=== PATIENT | female | born 1950 | race Caucasian/White ===

== ENCOUNTER 2017-04-15 17:05 | Inpatient (IN) ==
[2017-04-15] MEDS ORDERED: LEVOFLOXACIN INJ 750 MG in PREMIX 1 EACH IV STA (17:43)
[2017-04-15] MEDS ORDERED: methylPREDNISolone SOD SUC 125 MG/2 ML VIAL IV STA (17:43)
[2017-04-15] MEDS ORDERED: ALBUTEROL 2.5 MG/3 ML NEB RESP TX SCH (18:00)
[2017-04-15 18:14] LABS: Basophils # 0.1 10*3/uL (0.0-0.2); Basophils % 1.2 % (0.0-0.8); Eosinophils # 0.2 10*3/uL (0.0-0.87); Eosinophils % 1.9 % (0.00-10.9); Hematocrit 44.7 VOL% (35.7-47.0); Hemoglobin 15.5 GM/DL (12.0-16.0); Immature Granulocytes % 0.2 %; Immature Granulocytes Absolute 0.02 #; Lymphocytes # 2.3 10*3/uL (1.4-4.0); Lymphocytes % 26.9 % (21.3-54.2); Mean Corpuscular HGB Conc 34.7 GM/DL (32-36); Mean Corpuscular Hemoglobin 32 PG (27-34); Mean Corpuscular Volume 91.6 FL (87-102); Mean Platelet Volume 9.8 FL (9.6-12.0); Monocytes # 0.7 10*3/uL (0.11-0.8); Monocytes % 8.7 % (1.7-12.7); Neutrophils # 5.1 10*3/uL (1.4-7.4); Neutrophils % 61.1 % (38.7-73.9); Platelet Count 328 T/CUMM (130-400); Red Blood Count 4.88 MC/CUMM (3.8-5.5); Red Cell Distribution Width 12.4 % (9.3-17.3); White Blood Count 8.4 T/CUMM (4-12)
[2017-04-15] MEDS ORDERED: methylPREDNISolone SOD SUC 125 MG/2 ML VIAL ONE (18:16)
[2017-04-15] MEDS ORDERED: LEVOFLOXACIN INJ 150 ML IV ONE (18:16)
[2017-04-15 18:24] LABS: INR 0.9; Partial Thromboplastin Time 27.3 SECS (0-40)
[2017-04-15 18:51] LABS: Alanine Aminotransferase 27 U/L (13-56); Albumin 3.3 G/DL (3.4-5.0); Alkaline Phosphatase 74 U/L (45-117); Aspartate Amino Transferase 19 U/L (0-37); Blood Urea Nitrogen 11 MG/DL (7-18); Calcium 9.6 MG/DL (8.5-10.1); Glucose 99 MG/DL (74-106); Sodium 136 MMOL/L (136-145); Total Protein 7.3 G/DL (6.4-8.3); Troponin I Only 0.027 NG/ML (0.00-0.045)
[2017-04-15] MEDS ORDERED: INFLUENZA VIRUS VACCINE 0.5 ML SYRINGE IM ONE (21:07)
[2017-04-15] MEDS: HEPARIN 5,000 UNIT/1 ML VIAL SUBCUT SCH (22:04)
[2017-04-15] MEDS: clonazePAM 0.5 MG TABLET PO PRN (22:04)
[2017-04-15] MEDS: LACTULOSE 20 GM/30 ML UDCUP PO SCH (22:04)
[2017-04-15] MEDS: ESCITALOPRAM 10 MG TABLET PO SCH (22:06)
[2017-04-16] MEDS: ALBUTEROL 1.25 MG/3 ML NEB RESP TX SCH ×4 (02:40→19:14)
[2017-04-16] MEDS: ACETYLCYSTEINE 20% 800 MG/4 ML VIAL RESP TX SCH ×4 (02:41→19:14)
[2017-04-16] MEDS: HEPARIN 5,000 UNIT/1 ML VIAL SUBCUT SCH ×3 (06:43→21:30)
[2017-04-16 06:45] LABS: Basophils # 0.1 10*3/uL (0.0-0.2); Basophils % 0.7 % (0.0-0.8); Hematocrit 43.1 VOL% (35.7-47.0); Hemoglobin 14.7 GM/DL (12.0-16.0); Immature Granulocytes % 0.3 %; Immature Granulocytes Absolute 0.02 #; Lymphocytes # 1.1 10*3/uL (1.4-4.0); Lymphocytes % 15.5 % (21.3-54.2); Mean Corpuscular HGB Conc 34.1 GM/DL (32-36); Mean Corpuscular Hemoglobin 31 PG (27-34); Mean Corpuscular Volume 91.5 FL (87-102); Mean Platelet Volume 10.7 FL (9.6-12.0); Monocytes # 0.6 10*3/uL (0.11-0.8); Monocytes % 8.7 % (1.7-12.7); Neutrophils # 5.2 10*3/uL (1.4-7.4); Neutrophils % 74.8 % (38.7-73.9); Platelet Count 301 T/CUMM (130-400); Red Blood Count 4.71 MC/CUMM (3.8-5.5); Red Cell Distribution Width 12.3 % (9.3-17.3); White Blood Count 6.9 T/CUMM (4-12)
[2017-04-16 07:11] LABS: Calcium 9.9 MG/DL (8.5-10.1); Osmolality,Calculated 273.8 MOS/KG (273-304); Potassium 4.3 MMOL/L (3.5-5.1)
[2017-04-16] MEDS: LACTULOSE 20 GM/30 ML UDCUP PO SCH ×2 (10:34→21:29)
[2017-04-16] MEDS: clonazePAM 0.5 MG TABLET PO PRN ×2 (10:35→20:09)
[2017-04-16 15:12] LABS: Free T4 (Free Thyroxine) 1.44 NG/DL (0.76-1.46); Thyroid Stimulating Hormone 0.615 uIU/ml (0.358-3.74)
[2017-04-16] MEDS: LEVOFLOXACIN INJ 250 MG in PREMIX 1 EACH IV SCH (16:00)
[2017-04-16] MEDS: BISACODYL 10 MG SUPP RECTAL PRN (19:15)
[2017-04-16] MEDS ORDERED: MONTELUKAST 10 MG TABLET PO SCH (21:00)
[2017-04-16] MEDS: ESCITALOPRAM 10 MG TABLET PO SCH (21:29)
[2017-04-16] MEDS: methylPREDNISolone SOD SUC 40 MG/1 ML VIAL IV SCH (21:29)
[2017-04-17] MEDS: ALBUTEROL 1.25 MG/3 ML NEB RESP TX SCH ×4 (00:33→19:30)
[2017-04-17] MEDS: ACETYLCYSTEINE 20% 800 MG/4 ML VIAL RESP TX SCH ×4 (00:34→19:30)
[2017-04-17] MEDS: HEPARIN 5,000 UNIT/1 ML VIAL SUBCUT SCH ×3 (06:10→21:46)
[2017-04-17 08:46] LABS: ABG Base Excess 5.9 MMOL/L (-2.5-2.5); ABG HCO3 31.7 MMOL/L (20-26); ABG Oxygen Saturation 93.9 % (95-100); ABG PO2 60.3 MM HG (80-95); ABG TCO2 33.2 MMOL/L (23-27)
[2017-04-17] MEDS: LACTULOSE 20 GM/30 ML UDCUP PO SCH ×2 (08:49→21:37)
[2017-04-17] MEDS: LEVOFLOXACIN INJ 250 MG in PREMIX 1 EACH IV SCH (08:50)
[2017-04-17] MEDS: methylPREDNISolone SOD SUC 40 MG/1 ML VIAL IV SCH ×2 (08:50→21:48)
[2017-04-17] MEDS: clonazePAM 0.5 MG TABLET PO PRN ×3 (08:58→21:56)
[2017-04-17] MEDS ORDERED: ALBUTEROL 2.5 MG/3 ML NEB RESP TX PRN (11:30)
[2017-04-17] MEDS ORDERED: LACTULOSE 20 GM/30 ML UDCUP PO PRN (11:30)
[2017-04-17] MEDS ORDERED: NAPROXEN 250 MG TABLET PO PRN (11:30)
[2017-04-17] MEDS: BISACODYL 10 MG SUPP RECTAL PRN (13:45)
[2017-04-17] MEDS: OMEGA 3 ACID ETHYL ESTERS 1 GM CAPSULE PO SCH (21:39)
[2017-04-17] MEDS: ESCITALOPRAM 10 MG TABLET PO SCH (21:39)
[2017-04-18] MEDS: ALBUTEROL 1.25 MG/3 ML NEB RESP TX SCH ×4 (00:56→20:05)
[2017-04-18] MEDS: ACETYLCYSTEINE 20% 800 MG/4 ML VIAL RESP TX SCH ×4 (00:56→20:05)
[2017-04-18] MEDS: HEPARIN 5,000 UNIT/1 ML VIAL SUBCUT SCH ×3 (06:53→22:22)
[2017-04-18] MEDS: LEVOTHYROXINE 50 MCG TABLET PO SCH (06:56)
[2017-04-18] MEDS ORDERED: ESCITALOPRAM 10 MG TABLET PO SCH (09:00)
[2017-04-18] MEDS: LACTULOSE 20 GM/30 ML UDCUP PO SCH ×2 (09:38→22:12)
[2017-04-18] MEDS: THIAMINE 100 MG TABLET PO SCH (09:38)
[2017-04-18] MEDS: PANTOPRAZOLE 40 MG TABLET PO SCH (09:39)
[2017-04-18] MEDS: OMEGA 3 ACID ETHYL ESTERS 1 GM CAPSULE PO SCH ×2 (09:39→22:09)
[2017-04-18] MEDS: FOLIC ACID 1 MG TABLET PO SCH (09:39)
[2017-04-18] MEDS: methylPREDNISolone SOD SUC 40 MG/1 ML VIAL IV SCH ×2 (09:40→22:13)
[2017-04-18] MEDS: LEVOFLOXACIN INJ 250 MG in PREMIX 1 EACH IV SCH (09:40)
[2017-04-18] MEDS: clonazePAM 0.5 MG TABLET PO PRN ×2 (13:59→22:09)
[2017-04-18] MEDS: ESCITALOPRAM 10 MG TABLET PO SCH (22:11)
[2017-04-19] MEDS: ALBUTEROL 1.25 MG/3 ML NEB RESP TX SCH ×4 (00:58→19:21)
[2017-04-19] MEDS: ACETYLCYSTEINE 20% 800 MG/4 ML VIAL RESP TX SCH ×4 (00:59→19:22)
[2017-04-19] MEDS: LEVOTHYROXINE 50 MCG TABLET PO SCH (06:32)
[2017-04-19] MEDS: HEPARIN 5,000 UNIT/1 ML VIAL SUBCUT SCH ×3 (06:34→21:47)
[2017-04-19] MEDS: LACTULOSE 20 GM/30 ML UDCUP PO SCH ×2 (10:20→21:51)
[2017-04-19] MEDS: OMEGA 3 ACID ETHYL ESTERS 1 GM CAPSULE PO SCH ×2 (10:21→21:48)
[2017-04-19] MEDS: FOLIC ACID 1 MG TABLET PO SCH (10:21)
[2017-04-19] MEDS: LEVOFLOXACIN INJ 250 MG in PREMIX 1 EACH IV SCH (10:21)
[2017-04-19] MEDS: PANTOPRAZOLE 40 MG TABLET PO SCH (10:22)
[2017-04-19] MEDS: THIAMINE 100 MG TABLET PO SCH (10:22)
[2017-04-19] MEDS: clonazePAM 0.5 MG TABLET PO PRN (10:22)
[2017-04-19] MEDS: methylPREDNISolone SOD SUC 40 MG/1 ML VIAL IV SCH (10:23)
[2017-04-19] MEDS: BISACODYL 10 MG SUPP RECTAL PRN (16:10)
[2017-04-19] MEDS ORDERED: methylPREDNISolone SOD SUC 40 MG/1 ML VIAL IV SCH (21:00)
[2017-04-19] MEDS: ESCITALOPRAM 10 MG TABLET PO SCH (21:48)
[2017-04-20] MEDS: ALBUTEROL 1.25 MG/3 ML NEB RESP TX SCH ×2 (00:15→07:38)
[2017-04-20] MEDS: ACETYLCYSTEINE 20% 800 MG/4 ML VIAL RESP TX SCH ×2 (00:18→07:42)
[2017-04-20] MEDS: LEVOTHYROXINE 50 MCG TABLET PO SCH (06:23)
[2017-04-20] MEDS: HEPARIN 5,000 UNIT/1 ML VIAL SUBCUT SCH ×2 (06:23→14:13)
[2017-04-20] MEDS ORDERED: LEVOFLOXACIN 250 MG TABLET PO SCH (08:30)
[2017-04-20] MEDS ORDERED: predniSONE 20 MG TABLET PO SCH (09:00)
[2017-04-20] MEDS: PANTOPRAZOLE 40 MG TABLET PO SCH (10:14)
[2017-04-20] MEDS: LACTULOSE 20 GM/30 ML UDCUP PO SCH (10:19)
[2017-04-20] MEDS: FOLIC ACID 1 MG TABLET PO SCH (10:20)
[2017-04-20] MEDS: OMEGA 3 ACID ETHYL ESTERS 1 GM CAPSULE PO SCH (10:20)
[2017-04-20] MEDS: THIAMINE 100 MG TABLET PO SCH (10:20)
[2017-04-20] MEDS: clonazePAM 0.5 MG TABLET PO PRN (10:21)
[2017-04-20 12:18] VITALS: BP 132/76
== END 2017-04-20 15:02 | disposition home or self-care (01) | DRG 56 ==
LOC: N.ED 17:05 → N.EDINP 18:54 → SUATTDRO 18:54 → N.2E 19:49
PROVIDERS: ADMIT Family Medicine; ATTEND Internal Medicine Cardiovascular Disease